=== PATIENT | female | born 1955 | race Caucasian/White ===

== ENCOUNTER 2018-10-03 18:55 | Inpatient (IN) ==
--- NOTE | 2018-10-03 19:41 | Diag Imaging Result Doc PS360 ---
CT HEAD W/O CONTRAST - 10/03/2018 INDICATION: STROKE LIKE SYMPTOMS COMPARISON: 12/06/2017 FINDINGS: There is a stable area of encephalomalacia at the right cerebellar hemisphere. No intracranial mass or hemorrhage. The skull is intact. The sinuses, mastoids, and middle ears are clear. IMPRESSION: No acute disease or change from prior. This exam was performed using automated exposure control, adjustment of mA or kV according to patient size, and/or use of iterative reconstruction technique Electronically signed by Lexa Goldberg 10/03/2018 7:38 PM
--- NOTE | 2018-10-03 19:42 | Diag Imaging Result Doc PS360 ---
CHEST-PORTABLE - 10/03/2018 INDICATION: weak COMPARISON: 12/06/2017 FINDINGS: The lungs are normally expanded and clear. Heart size and mediastinal contours are normal. No pneumothorax or pleural effusion. IMPRESSION: Negative exam. Electronically signed by Lexa Goldberg 10/03/2018 7:40 PM
[2018-10-03 20:00] LABS: BASO# 0.04 X1000 (0.0-0.2); BASO% 0.3 % (0.0-0.8); EOS# 0.28 X1000 (0.0-0.7); EOS% 2.2 % (0.0-10.0); HEMATOCRIT 42.2 % (37.0-47.0); HEMOGLOBIN 13.8 g/dL (12.0-16.0); IMM GRAN# 0.03 X1000 (0.0-0.04); IMM GRAN% 0.2 % (0.0-0.5); LYMPH# 3.23 X1000 (1.2-3.4); LYMPH% 24.9 % (20.5-51.1); MCHC 32.7 g/dL (33-37); MCV 94.8 FL (81-99); MONO# 0.71 X1000 (0.11-0.59); MONO% 5.5 % (1.7-9.3); NEUT# 8.66 X1000 (1.4-6.5); NEUT% 66.9 % (42.2-75.2); PLT 116 X1000 (130-400); RBC 4.45 XMIL (4.2-5.4); RDW 13.4 % (11.5-14.5); WBC 12.95 X1000 (4.8-10.8)
[2018-10-03 20:04] LABS: INR 0.85; PROTIME 12.3 Seconds (11.0-16.0)
[2018-10-03 20:05] LABS: PTT 39.8 Seconds (22.3-41.8)
[2018-10-03 21:15] LABS: ALB/GLOB RATIO 1.2; ALBUMIN 3.9 g/dL (3.5-5.0); CALCIUM 9.4 mg/dL (8.8-10.2); CREATININE 1.1 mg/dL (0.5-0.9); POTASSIUM 4.6 mmol/L (3.5-5.1); TOTAL BILIRUBIN 0.24 mg/dL (0.20-1.00); TOTAL PROTEIN 7.1 g/dL (6.3-8.3)
[2018-10-03] MEDS ORDERED: NS 1,000 ML IV SCH (23:56)
[2018-10-03] MEDS ORDERED: ZOFRAN IV PRN (23:56)
--- NOTE | 2018-10-04 00:24 | HISTORY AND PHYSICAL ---
PRIMARY PHYSICIAN: Dr. Vin Wagner's office. REASON FOR ADMISSION: Expressive aphasia of 1 day's duration. HISTORY OF PRESENT ILLNESS: Nohemy Maher is a 63-year-old woman who has a prior history of coronary artery disease, renal stones, type 2 diabetes, hypertension, hyperlipidemia, hypothyroidism secondary to partial parathyroidectomy and 2 prior CVAs, with a history of diabetic neuropathy. The patient is unable to give me a very clear cut history because of the limitations her presenting complaints have imposed on her. However, with the help of her friend she is able to tell me that in the early hours of this morning she was in [place] and had a hard time getting a few words out. Her friends there who she had gone to visit persuaded her to go to the hospital, she declined and drove herself to [place]. When getting to [place] she said she noticed that her speech was much worse. She states that I know what I want to say but the words do not come out right. She denied any swallowing difficulty, headache or visual problems. No focal weakness, numbness or tingling. No loss of consciousness. No antecedent palpitations or cardiorespiratory complaints. The patient has not fecal incontinence but she has a history of urge incontinence. No additional GI or complaints. No change in her recent home medications. REVIEW OF SYSTEMS: A twelve system review was done with positive findings per HPI. ALLERGIES: None. HOME MEDICATION: Effexor 37.5 mg at bedtime, aspirin 81 mg daily, metformin XR 500 mg b.i.d, empagliflozin 10 mg at bedtime, lisinopril 30 mg q.a.m., oxybutynin 10 mg daily, Zetia 10 mg daily, Brilinta 90 mg b.i.d., atorvastatin 40 mg daily, Synthroid 75 mcg ivonne, Metoprolol-XL 25 mg b.i.d. SURGICAL HISTORY: She has had prior thyroidectomy, tubal ligation, left heart catheterization, D and C, lithotripsy. SOCIAL HISTORY: The patient continues to smoke 1/2 pack a day. No alcohol or illicit drug use. She lives alone. FAMILY HISTORY: Notable for leukemia, Alzheimer disease, prior strokes. No heart disease or diabetes in first-degree relatives. LABORATORY DATA: WBC is 13,000, H and H is 13 and 42, platelets is 116,000, with a normal differential. BUN is 20, creatinine 1.1, glucose 211. Troponin is negative. PTT is normal. IMAGING: Head CT shows no acute change from prior. There is some stable area of encephalomalacia in the right cerebellar hemispheres. Chest film, no acute cardiopulmonary process. EKG not available for review. PHYSICAL EXAMINATION: VITAL SIGNS: Blood pressure 182/111, heart rate is 85, respirations 18, temperature is 98.7 degrees, O2 saturation is 97% on room air. GENERAL: She is middle-aged obese woman who is not in acute distress. She is alert and oriented x3 with normal mood and affect. HEAD: Head is normocephalic and atraumatic. EYES: ANDRY. EOMI. Anicteric. Not pale. Cranial nerves II-XII are grossly intact except the patient does have overt expressive aphasia. No gross focal sensory or motor deficits. ENT: Oropharynx examination is grossly normal. NECK: Short and thick. No JVD or carotid bruit. No thyromegaly. CHEST: Clear when auscultated with good air entry in both lung prabhakar. CARDIOVASCULAR: First and second heart sounds heard. No gallops, murmurs or rubs. Rhythm is regular. ABDOMEN: Protuberant, soft, nontender. No hepatomegaly. Bowel sounds are hyperactive. EXTREMITIES: The patient has good distal pulses which are regular and symmetrical. No edema, clubbing or cyanosis. NEUROLOGIC: See above.Skin: Intact. No breakdown, lesions or erythema. Musculoskeletal: Examination is grossly normal. ASSESSMENT: 1. Expressive aphasia secondary to probable left middle cerebral artery territory stroke. 2. Type 2 diabetes with nephropathy, uncontrolled. 3. Hypertensive heart disease. 4. Coronary artery disease. 5. Tobacco use. 6. Hyperlipidemia. PLAN: The patient will undergo extensive radiographic imaging and cardiovascular workup. The patient informs me that Dr. Vin Wagner just put her on an at least 30-day heart monitor and she was supposed to see him tomorrow. We will consult Dr. Vin Wagner to see her tomorrow, and maybe with a 30-day vent monitor the patient may have paroxysmal atrial fibrillation, which may explain her recurrent CVAs. For now start the patient on Plavix and aspirin. Deescalate aspirin. This is because the patient has had 2 strokes while on this antiplatelet regimen. I will optimize the patient's statin therapy. Check A1c lipid panel. Consult Dr. Dietrich for further input. Smoking cessation was reiterated. cc: Germaine Roberts MD MTDNisha
[2018-10-04] MEDS: LOVENOX SUBQ SCH (01:14)
[2018-10-04] MEDS: LIPITOR PO SCH ×2 (01:15→22:07)
--- NOTE | 2018-10-04 02:28 | PROVIDER DOCUMENTATION ---
This chart was entered by Jessica Reyes Scribe, acting as scribe for Dao Bishop MD. HPI-Neurological Disorder - General Chief Complaint: Stroke-Like Symptoms Stated Complaint: STROKE SX Time Seen by Provider: 10/03/18 19:07 Source: patient, family Allergies/Adverse Reactions: Patient Allergies Allergy/AdvReac Type Severity Reaction Status Date / Time No Known Allergies Allergy Verified 10/03/18 22:25 Home Medications: Home Medication List Medication Instructions Recorded Confirmed Last Taken Type Ezetimibe [Zetia] 10 mg PO DAILY 11/26/13 10/03/18 10/03/18 09:00 History Oxybutynin Chloride [Oxybutynin 10 mg PO DAILY 12/04/13 10/03/18 12/05/17 20:00 History Chloride ER] Metformin E.r. [Glucophage Xr] 500 mg PO BID CC 08/23/14 10/03/18 10/03/18 09:00 History Aspirin 81 mg PO DAILY 05/25/17 10/03/18 10/02/18 09:00 History ATORVAstatin [Lipitor] 40 mg PO DAILY #90 tablet 05/27/17 10/03/18 10/03/18 09:00 Rx Metoprolol Succinate E.r. [Toprol 25 mg PO BID #60 tab 05/27/17 10/03/18 10/03/18 09:00 Rx Xl] Ticagrelor [Brilinta] 90 mg PO BID #60 tab 05/27/17 10/03/18 10/03/18 09:00 Rx Venlafaxine [Effexor] 1 each PO QHS 12/06/17 10/03/18 Unknown History Levothyroxine [Synthroid] 75 microgm PO DAILY@0700 #120 tab 12/08/17 10/03/18 10/03/18 09:00 Rx Empagliflozin [Jardiance] 1 ea PO QAM 10/03/18 10/03/18 Unknown History Lisinopril 30 mg PO QAM 10/03/18 10/03/18 Unknown History - History of Present Illness-Neuro Nature of Presenting Problem: 63 yof c/o trouble communicating since 0900. pt friend at bedside sts pt came in from [place] this am. pt has hx of 3 strokes. pt on blood thinners. denies fever, cough, and trouble swallowing. pt has appt w/dr. hinkle at [facility] [place] tomorrow. Review of Systems - Adult - REVIEW OF SYSTEMS - ADULT Constitutional: reports: no symptoms reported. denies: fever Eyes: reports: no symptoms reported Ears, Nose, Mouth & Throat: reports: no symptoms reported Cardiovascular: reports: no symptoms reported Respiratory: reports: no symptoms reported. denies: cough Gastrointestinal: reports: no symptoms reported Genitourinary: reports: no symptoms reported Musculoskeletal: reports: no symptoms reported Integumentary: reports: no symptoms reported Neurological: reports: see HPI, other (trouble communicating). denies: seizure, slurred speech, syncope Psychiatric: reports: no symptoms reported Endocrine: reports: no symptoms reported Hematologic/Lymphatic: reports: no symptoms reported Allergic/Immunologic: reports: no symptoms reported All Other Systems: Reviewed and Negative Past History - Adult - PAST MEDICAL HISTORY-ADULT Review of Records: reports: Old Records Reviewed, Nursing Assessment Review, Medications Reviewed, Social history reviewed & non-contributory. Major Childhood Illnesses: reports: denies history Cardiovascular: reports: HTN, hyperlipidemia Respiratory: reports: denies history Gastrointestinal: reports: denies history Obstetrical/Gynecological: reports: denies history Genitourinary: reports: denies history Musculoskeletal: reports: denies history Neurological: reports: CVA (x3) Psychiatric: reports: anxiety Endocrine/Immune: reports: Diabetes Other Conditions: reports: denies history - PRIOR SURGERIES/PROCEDURES Surgical/Procedure History: reports: BTL, tonsillectomy - PRIOR HOSPITALIZATIONS Prior Hospitalizations: reports: none - IMMUNIZATION STATUS Childhood Immunizations: See Nurse Assessment Flu Vaccine: See Nurse Assessment - FAMILY HISTORY Family History: reviewed, not pertinent Physical Exam- Neurological - Physical Exam-Neuro Initial Vital Signs Reviewed: Yes General Appearance: appears well, alert, no apparent distress Eye Exam: bilateral eye: normal inspection, PERRL, EOMI HENMT: normocephalic/atraumatic, moist mucous membranes, normal ENT inspection Head Injury: no evidence of injury Neck: non-tender, full range of motion, supple, normal inspection Respiratory: chest non-tender, lungs clear, normal breath sounds Cardiovascular: normal peripheral pulses, regular rate, rhythm Abdominal Exam: normal bowel sounds, non tender, soft Peripheral Pulses: radial (R): 2+, radial (L): 2+ Extremity: normal range of motion, non-tender, 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 negative: abnormal eye position, abnormal gag reflex, abnormal pupil position Coordination/Gait: normal finger to nose. 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 negative: facial droop, focal weakness Integumentary: normal color, normal turgor, warm/dry Psych/Mental Status: normal mood/affect, normal thought content, normal thought process, oriented x 3 - Glascow Coma Scale Best Eye Response: (4) open spontaneously Best Verbal Response: (5) oriented Best Motor Response: (6) obeys commands Total Glascow Score: 15 Progress - PLAN OF CARE/RESULTS Progress/Plan/Lab Results: Vital Signs - 8 hr 10/03/18 19:00 10/03/18 19:33 10/03/18 20:08 Temperature 98.7 F Pulse Rate 85 75 73 Respiratory Rate 18 22 18 Blood Pressure 182/111 165/119 161/100 O2 Sat by Pulse Oximetry 97 96 96 10/03/18 20:09 10/03/18 20:10 10/03/18 20:20 Temperature Pulse Rate 73 74 72 Respiratory Rate 18 16 23 Blood Pressure O2 Sat by Pulse Oximetry 97 97 96 10/03/18 20:30 10/03/18 20:40 10/03/18 20:50 Temperature Pulse Rate 73 70 70 Respiratory Rate 20 17 20 Blood Pressure O2 Sat by Pulse Oximetry 95 97 97 10/03/18 21:00 10/03/18 21:02 10/03/18 21:10 Temperature Pulse Rate 73 69 73 Respiratory Rate 23 21 27 H Blood Pressure 158/104 O2 Sat by Pulse Oximetry 97 97 95 10/03/18 21:20 10/03/18 21:30 10/03/18 21:40 Temperature Pulse Rate 69 73 69 Respiratory Rate 21 25 H 14 Blood Pressure O2 Sat by Pulse Oximetry 97 98 98 10/03/18 21:50 10/03/18 22:00 10/03/18 22:02 Temperature Pulse Rate 71 76 75 Respiratory Rate 27 H 15 26 H Blood Pressure 170/94 O2 Sat by Pulse Oximetry 98 96 96 10/03/18 22:10 10/03/18 22:20 10/03/18 22:30 Temperature Pulse Rate 69 68 71 Respiratory Rate 20 16 16 Blood Pressure O2 Sat by Pulse Oximetry 96 97 96 10/03/18 22:40 Temperature Pulse Rate 74 Respiratory Rate 17 Blood Pressure O2 Sat by Pulse Oximetry 94 L Laboratory Results - last 24 hr 10/03/18 10/03/18 10/03/18 19:40 19:40 19:40 WBC 12.95 H RBC 4.45 Hgb 13.8 Hct 42.2 MCV 94.8 MCH 31.0 MCHC 32.7 L RDW Std Deviation 13.4 Plt Count 116 L MPV 12.0 H Immature Gran % (Auto) 0.2 Neut % (Auto) 66.9 Lymph % (Auto) 24.9 Lamar % (Auto) 5.5 Eos % (Auto) 2.2 Baso % (Auto) 0.3 Immature Gran # (Auto) 0.03 Neut # (Auto) 8.66 H Lymph # (Auto) 3.23 Lamar # (Auto) 0.71 H Eos # (Auto) 0.28 Baso # (Auto) 0.04 PT 12.3 INR 0.85 PTT (Actin FS) 39.8 Sodium 140 Potassium 4.6 Chloride 103 Carbon Dioxide 21 L Anion Gap 16 BUN 21 Creatinine 1.1 H Estimated GFR/1.73 m2 50 BUN/Creatinine Ratio 19 Glucose 211 H Calculated Osmolality 289 Calcium 9.4 Total Bilirubin 0.24 AST 21 ALT 13 Alkaline Phosphatase 102 Troponin T Total Protein 7.1 Albumin 3.9 Globulin 3.2 Albumin/Globulin Ratio 1.2 10/03/18 19:40 WBC RBC Hgb Hct MCV MCH MCHC RDW Std Deviation Plt Count MPV Immature Gran % (Auto) Neut % (Auto) Lymph % (Auto) Lamar % (Auto) Eos % (Auto) Baso % (Auto) Immature Gran # (Auto) Neut # (Auto) Lymph # (Auto) Lamar # (Auto) Eos # (Auto) Baso # (Auto) PT INR PTT (Actin FS) Sodium Potassium Chloride Carbon Dioxide Anion Gap BUN Creatinine Estimated GFR/1.73 m2 BUN/Creatinine Ratio Glucose Calculated Osmolality Calcium Total Bilirubin AST ALT Alkaline Phosphatase Troponin T < 0.010 Total Protein Albumin Globulin Albumin/Globulin Ratio Orders Category Date Time Status Admit - [facility] Routine AdmDCTranf 10/03/18 23:56 Active Activity - Strict Bedrest Q1D Care 10/03/18 23:56 Active Aspiration Precautions DIRECTED Care 10/03/18 23:56 Active Elevate Head of Bed DIRECTED Care 10/03/18 23:56 Active FSBS/Accucheck Result AC + HS Care 10/03/18 23:56 Active IV Insertion ORDERED Care 10/03/18 23:56 Active Intake and Output-Strict ORDERED Care 10/03/18 23:56 Active Misc. NRSG Communication Order DIRECTED Care 10/03/18 23:56 Active Neurological Check ORDERED Care 10/03/18 23:56 Active Nursing- MD Consult Request ROUTINE Care 10/03/18 23:56 Active Vital Signs Order Q 4-HR ASSESS Care 10/03/18 23:56 Active Z-Document. for Tele Applied ORDERED Care 10/03/18 23:56 Active Physician/Provider Consults Routine Cons 10/03/18 23:56 Ordered Physician/Provider Consults Routine Cons 10/03/18 23:56 Ordered Social Service Consult Routine Cons 10/03/18 23:56 Active Diabetic Diet Diet 10/03/18 23:56 Active NPO Diet 10/03/18 Lunch Active CHEST-PORTABLE [RAD] Stat Exams 10/03/18 19:[address] HEAD W/O CONTRAST [CT] Stat Exams 10/03/18 19:02 Completed A1C HGB W EST AVG GLUCOSE [CHEM] Routine Lab 10/04/18 06:00 Ordered BASIC METABOLIC PANEL [CHEM] Routine Lab 10/04/18 06:00 Ordered CBC WITH ELECTRONIC DIFF [HEME] Stat Lab 10/03/18 19:40 Completed CBC WITH NO DIFF [HEME] Routine Lab 10/04/18 06:00 Ordered COMPREHENSIVE METABOLIC PANEL [CHEM] Stat Lab 10/03/18 19:40 Completed LIPID PROFILE W/CALC LDL [LIPIDS] Routine Lab 10/04/18 06:00 Ordered LIPID PROFILE W/DIR LDL [LIPIDS] Routine Lab 10/04/18 06:00 Ordered PROTIME WITH INR [COAG] Stat Lab 10/03/18 19:40 Completed PTT [COAG] Stat Lab 10/03/18 19:40 Completed TROPONIN T Stat Lab 10/03/18 19:40 Completed UA NIMS W/REFLEX CULT [URINALYSIS] Stat Lab 10/03/18 19:42 Ordered 0.9% Sodium Chloride Inj [Ns] 1,000 ml Med 10/03/18 23:56 Active IV 125 mls/hr ATORVAstatin [Lipitor] Med 10/03/18 23:56 Active 80 mg PO QHS Acetaminophen [Tylenol] Med 10/03/18 23:56 Active 650 mg PO Q6H PRN PRN Aspirin Med 10/04/18 09:00 Active 81 mg PO DAILY Clopidogrel [Plavix] Med 10/04/18 09:00 Active 75 mg PO DAILY Enoxaparin [Lovenox] Med 10/03/18 23:56 Active 40 mg SUBQ Q24H Insulin Lispro [Humalog] Med 10/04/18 07:00 Active See Protocol SUBQ 0700,1100,1600,2100 LISINOpril [Prinivil] Med 10/04/18 09:00 Active 30 mg PO QAM Nicotine Patch [Nicoderm Patch] Med 10/04/18 09:00 Active 21 mg TD DAILY Ondansetron [Zofran] Med 10/03/18 23:56 Active 4 mg IV Q4H PRN PRN Telemetry [OM.EQ] Routine Oth 10/03/18 23:56 Active Physical Therapy Eval/Treatment [OM.PT] Routine Ther 10/03/18 23:56 Active Speech Evaluation [OM.SPT] Routine Ther 10/03/18 23:56 Active Transfer/Admit Order [TRANSFER] Routine Transfer 10/03/18 22:05 Completed Result Diagrams: 10/03/18 19:40 10/03/18 19:40 - EKG 1 Time of EKG reading by physician:: 19:59 EKG Read and Signed by:: Dao Bishop EKG Interpretation (*Must complete 3 of following elements*): Abnormal Rate: 71 Rhythm: NSR [place]: normal QRS: normal [place] Interval: normal ST Wave: normal Comments: anterior infarct, age undetermined - XRAY 1 XRAY Study: Chest (CHEST-PORTABLE - 10/03/2018 INDICATION: weak COMPARISON: 12/06/2017 FINDINGS: The lungs are normally expanded and clear. Heart size and mediastinal contours are normal. No pneumothorax or pleural effusion. IMPRESSION: Negative exam. Electronically signed by Lexa Goldberg 10/03/2018 7:40 PM) Impression: Normal - CT/MRI 1 CT Study: Head ( CT HEAD W/O CONTRAST - 10/03/2018 INDICATION: STROKE LIKE SYMPTOMS COMPARISON: 12/06/2017 FINDINGS: There is a stable area of encephalomalacia at the right cerebellar hemisphere. No intracranial mass or hemorrhage. The skull is intact. The sinuses, mastoids, and middle ears are clear. IMPRESSION: No acute disease or change from prior. This exam was performed using automated exposure control, adjustment of mA or kV according to patient size, and/or use of iterative reconstruction technique Electronically signed by Lexa Goldberg 10/03/2018 7:38 PM) Impression: Normal Comparison with other Films: no changes - CONSULTS/PCP/HOSPITALIST Notification #1 *Consult/PCP/Hospitalist*: Dr. Roberts Time Discussed: 21:38 Reason/Comments: Dr. Roberts will admit pt Consult Disposition: Admit Departure - Departure Date of Disposition Decision: 10/04/18 Time of Disposition Decision: 20:00 DIAGNOSIS: CVA (cerebral vascular accident) Disposition: ADMITTED INPATIENT 09 Certified Medical Emergency: Emergent Condition: Serious - Critical Care Note This patient required my direct & personal management of CC.: No Attestation - Physician/ BERTHA Attestation Patient care was provided by Advanced Practice Provider:: No The physician spent face to face time with patient:: Yes Advanced Practice Provider documentation review:: Supervising physician onsite and consulted in the evaluation and care of this patient. The physician did have a face to face encounter with the patient. This chart was documented by the indicated scribe, (Jessica Reyes Scribe) and accurately reflects the services I performed and decisions made by me, Dao Bishop MD, as attested by the provider's signature.
[2018-10-04] MEDS: HUMALOG SUBQ SCH ×4 (05:59→21:51)
[2018-10-04 07:04] LABS: HEMATOCRIT 40.7 % (37.0-47.0); MCH 31.3 PG (27-31); MCHC 31.9 g/dL (33-37); MCV 97.8 FL (81-99); RBC 4.16 XMIL (4.2-5.4); RDW 13.4 % (11.5-14.5); WBC 9.37 X1000 (4.8-10.8)
--- NOTE | 2018-10-04 07:30 | EKG Report ---
Test Performed on : 10/03/2018 7:59:28 PM Test Reason : ED. NO EKG ORDER FOR MUSE Blood Pressure : / mmHG Vent. Rate : 071 BPM Atrial Rate : 071 BPM P-R Int : 180 ms QRS Dur : 092 ms QT Int : 394 ms P-R-T Axes : 049 036 039 degrees QTc Int : 428 ms Normal sinus rhythm. Anterior infarct , age undetermined Abnormal ECG When compared with ECG of 06-DEC-2017 09:08, Nonspecific T wave abnormality no longer evident in Lateral leads Unconfirmed Result
[2018-10-04 07:34] LABS: AGAP 10; BUN 17 mg/dL (8-22); CHLORIDE 105 mmol/L (98-107); CHOLESTEROL 137 mg/dL (0-200); COSMO 285; CREATININE 0.9 mg/dL (0.5-0.9); ESTIMATED GFR > 60; GLUCOSE 147 mg/dL (70-104); HDL 42 mg/dL (45-65); LDL 49 mg/dL; POTASSIUM 4.6 mmol/L (3.5-5.1); SODIUM 141 mmol/L (136-145); TCO2 26 mmol/L (25-35); TRIGLYCERIDES 228 mg/dL (35-135); VLDL 46 mg/dL
[2018-10-04 07:35] LABS: HEMOGLOBIN A1C 8.5 % (4.8-6.0)
[2018-10-04] MEDS: PRINIVIL PO SCH (08:18)
[2018-10-04] MEDS: TYLENOL PO PRN (10:28)
[2018-10-04] MEDS: NICODERM PATCH TD SCH (10:29)
[2018-10-04] MEDS: PLAVIX PO SCH (10:29)
[2018-10-04] MEDS: ASPIRIN PO SCH (10:29)
--- NOTE | 2018-10-04 12:41 | CARDIOLOGY CONSULTATION ---
DATE: 10/04/2018 HISTORY OF PRESENT ILLNESS: Ms. Nohemy Maher is a 63-year-old lady who has history of having had a non-ST elevation myocardial infarction, takotsubo syndrome, hypertension, strokes in the past, two prior CVAs, who came to the emergency room and was admitted as she was not able to enunciate words appropriately. The patient was in [place] and had difficulty in speech and from [place] to [place], she noticed that her speech worsened. Did not have any focal weakness of either extremities. Did not lose consciousness. Subsequently she came here and was admitted. She has extensive history and workup as well. She in our office had worn a 30 day monitor which did not reveal any evidence of atrial fibrillation. Sinus rhythm was noted. In the past, she has had a CVA and MRI of the brain on 12/24/2017 revealed a small left parietal infarct with multiple old infarcts. Past medical history significant as below. REVIEW OF SYSTEMS: A 14 point review of systems was done. GI System: There is no history of nausea, vomiting, or diarrhea. There is no history of hematemesis or melena. Central nervous system: As above. Cardiovascular System: No chest pain. No palpitations. Genitourinary System: There is no dysuria or hematuria. PAST MEDICAL HISTORY: 1. Coronary artery disease, non ST elevation myocardial infarction on 05/25/2017. Left heart catheterization 05/27/2017 revealed LAD proximal 50%, circumflex was normal, diagonal a small lesion noted with terminal portion occluded. RCA minimal irregularities. Left ventricular ejection fraction 65%. 2. Echocardiogram 2018 was unremarkable. 3. Takotsubo syndrome in the past. 4. Hypertension. 5. Hyperlipidemia. 6. Diabetes mellitus. 7. CVA 02/01/2017 and in November 2017. The last MRI 12/06/2017 revealed small recent left parietal infarct with multiple old infarcts. 8. Hypoparathyroidism following procedure of partial parathyroidectomy. 9. Vascular dementia. 10. Depression. HOME MEDICATIONS: Effexor 37.5 mg, aspirin 81 mg a day, metformin 500 mg p.o. b.i.d., empagliflozin 10 mg at bedtime, lisinopril 30 mg, oxybutynin 10, Zetia 10, Brilinta 90 b.i.d., atorvastatin 90, Synthroid 75, metoprolol 25. SOCIAL HISTORY: The patient continues to smoke. PHYSICAL EXAMINATION: Vital Signs: When she came to the emergency room, blood pressure was 180/111. Blood pressure at the present time is 124/72. Cardiovascular System: Normal jugular venous pressure. First and second heart sounds were heard. There is no carotid bruit. There was no S3 gallop. Respiratory System: Normal air entry. There is no crepitations or rhonchi. Abdomen: Soft, nontender. There was no guarding or rigidity. Bowel sounds were heard. Central nervous system: Alert and oriented. Patient has speech difficulty. Was moving all 4 extremities. ASSESSMENT: Ms. Nohemy Maher is a 63-year-old lady who has had multiple strokes in the past who is admitted with speech difficulty and Neurology has been consulted. From a cardiac standpoint, she has had a history of non-Q-wave ST elevation myocardial infarction and also has hypertension, diabetes, pneumonia, depression. RECOMMENDATIONS: 1. She wore a 30 day loop monitor in our office which did not reveal any evidence of atrial fibrillation. 2. She has had multiple infarcts, cerebral, and we will plan for a transesophageal echocardiogram to make sure there is no cardiac etiology as well as we will rule out any patent foramen ovale. 3. As far as medications are concerned, she had non-Q-wave myocardial infarction on 05/25/2017. She has been on aspirin and Brilinta. Brilinta was given for a non-ST elevation PA and I will discontinue the Brilinta. The question comes whether or not she has had atrial fibrillation. She was not wearing a monitor when this episode happened and 30-day loop monitor was unremarkable. She would probably benefit from implantable loop device to make sure that there is no atrial fibrillation to account for her symptoms. 4. Hypertension. She was hypertensive when she came in. Currently blood pressure is under control on the current medications. I have not made any changes. 5. Diabetes. Continue with the current medications. 6. She has hypothyroid. Continue with the current medications. Thank you for the consult. cc: MD Latasha Lake MD
--- NOTE | 2018-10-04 14:34 | CONSULTATION ---
DATE OF CONSULTATION: 10/04/2018 HISTORY OF PRESENT ILLNESS: Ms. Maher is 63 years old, and there is question of another stroke- like event. History from the patient is that there was sudden onset of inability to make herself understood with speech yesterday. She did not have trouble understanding what was said to her. She recognized her speech difficulty. She believes her speech was not slurred, but she could not make her words come out right. There was no headache, vision disturbance, altered consciousness, altered awareness. She did not notice any new focal motor deficit. She believes that her words are coming together a little bit better today, but there has not been a major change since onset yesterday. Workup includes initial noncontrast CT of the head showing old ischemic changes, most prominent in the right cerebellum, but nothing new and no bleeding. Lab shows blood sugars 100-200. Triglycerides elevated at 237. Total cholesterol was 138. She has been afebrile since admission. Heart rate has ranged 60s to 90s. Initial systolic blood pressure was 180s and systolic blood pressures have been 120s-140s since she settled in. There is history of prior presumed ischemic neurologic events with brain imaging sometimes correlating and sometimes not correlating well with clinical features. Prior episodes have been associated with speech difficulty similar to current episode, and there have also been some sensory and possibly visual changes, but never clear focal motor deficit, with prior events. Past history is remarkable for probable stroke as above, ischemic heart disease, hypertension, dyslipidemia, diabetes mellitus type 2. She smokes cigarettes. She has taken thyroid replacement since surgery. CURRENT MEDICINES: Include aspirin, atorvastatin, Jardiance, Zetia, Synthroid, lisinopril metformin, metoprolol, Brilinta, Effexor, oxybutynin. PHYSICAL EXAMINATION: On exam, Ms. Maher is awake, alert, bright, cheerful, attentive. She recognized me from prior visit (I saw her in 2014 and in 2018). Speech is not dysarthric. She had trouble repeating pronouns. She named objects and parts of objects. She named the President. She followed simple commands consistently. She had slight difficulty following commands requiring right/left distinction and digit distinction. She followed written and spoken commands equally well. I did not test her handwriting. Visual prabhakar are full tested grossly by confrontational finger counting. Extraocular movements are full. Facial motility is good bilaterally. Gag is intact. Tongue is midline. She can hear. She has good power in the left limbs. I can overcome the right arm at the deltoid grading 4+/5. Tone is slightly increased in the right arm. She did rapid alternating movements well with the hands. She did well on [id number] testing bilaterally. Sensation is intact to pinprick testing over the hands. She has a stocking pattern of sensory loss which appears to be equal on the left and right. Plantar response is silent bilaterally. Reflexes absent at the ankle bilaterally. Proprioception is good at the great toe MTP joint bilaterally. I did not test her gait. IMPRESSION: 1. Predominantly expressive dysphasia. With reported sudden onset in this patient with previous ischemic events and risk factors, this seems most likely acute ischemic dominant left hemisphere infarction. She did not have headache with this episode. Migraine would not be impossible, but seems less likely. Her creatinine is down to 0.9 today. I will order brain magnetic resonance imaging with contrast and further plans will depend on that report. 2. Cardiology workup is in progress. Thanks for asking Neurology to see Ms Maher. cc: MD Latasha Martinez III, MD MTDD
--- NOTE | 2018-10-04 15:53 | Diag Imaging Result Doc PS360 ---
EXAM: MRI BRAIN W/WO CONTRAST INDICATION: new dysphasia COMPARISON: 12/06/2017 FINDINGS: There is patchy restricted diffusion involving the right frontal lobe mainly involving the operculum including Broca's area consistent with acute infarct. There are several old cerebellar infarcts bilaterally. There is mild subcortical white matter microangiopathy that is stable. There is no discrete intracranial mass, mass effect, or intracranial hemorrhage. No abnormal intracranial enhancement is appreciated. The surrounding soft tissues and bony structures are essentially unremarkable. IMPRESSION: 1.Patchy restricted diffusion indicating acute infarcts involving the left frontal lobe including Broca's area. 2.Mild chronic white matter change as well as chronic infarcts involving the cerebellar hemispheres bilaterally. Electronically signed by Edmond Reyes 10/04/2018 3:50 PM
--- NOTE | 2018-10-04 18:39 | PROGRESS NOTE ---
DATE: 10/04/2018 SUBJECTIVE: The patient is resting comfortably. She does have expressive aphasia. OBJECTIVE: Vital Signs: Temperature 98.4 degrees, blood pressure 142/72, heart rate 70, respirations 18, O2 saturation is 97% on room air. General: This is a chronically ill-appearing elderly female sitting up in a chair, in no acute distress. Heart: S1, S2 normal. Regular rate and rhythm. Lungs: Clear to auscultation bilaterally. No wheezing. No rales. No rhonchi. Abdomen: Positive bowel sounds. Soft, nontender, nondistended. Extremities: No edema. No cyanosis. Neurologic: The patient is alert and oriented x4. She does have expressive aphasia. LABS: Sodium 141, potassium 4.6. Hemoglobin A1c 8.5. LDL 78, cholesterol 138. ASSESSMENT AND PLAN: 1. Acute cerebrovascular accident. The MRI shows acute infarcts involving the left frontal lobe including the Broca's area. The patient is scheduled to undergo a CALI tomorrow. Continue on Lipitor and Plavix. 2. Hypothyroidism. Continue on Synthroid. 3. Diabetes mellitus type 2. Continue with sliding scale insulin. 4. Situational depression. Continue on Effexor. 5. Tobacco dependence. The patient has been counseled about smoking cessation. 6. Deep vein thrombosis prophylaxis. Continue on Lovenox. 7. Disposition. Speech therapy as well as physical therapy have been consulted. cc: Latasha Iniguez MD
[2018-10-05] MEDS: LOVENOX SUBQ SCH ×2 (00:02→23:55)
[2018-10-05] MEDS: HUMALOG SUBQ SCH ×4 (06:04→20:56)
[2018-10-05] MEDS: SYNTHROID PO SCH (06:04)
[2018-10-05 07:35] LABS: HEMATOCRIT 41.6 % (37.0-47.0); HEMOGLOBIN 13.3 g/dL (12.0-16.0); MPV 12.2 FL (7.4-10.4); RBC 4.29 XMIL (4.2-5.4); RDW 13.4 % (11.5-14.5); WBC 7.69 X1000 (4.8-10.8)
[2018-10-05 07:39] LABS: AGAP 10; BUN 16 mg/dL (8-22); CALCIUM 8.9 mg/dL (8.8-10.2); CHLORIDE 107 mmol/L (98-107); COSMO 288; CREATININE 0.9 mg/dL (0.5-0.9); ESTIMATED GFR > 60; GLUCOSE 158 mg/dL (70-104); POTASSIUM 4.4 mmol/L (3.5-5.1); SODIUM 142 mmol/L (136-145); TCO2 25 mmol/L (25-35)
[2018-10-05] MEDS ORDERED: XYLOCAINE 2% VISCOUS ONE (08:17)
[2018-10-05] MEDS ORDERED: SODIUM CHLORIDE 0.9% 10 ML ONE (08:17)
[2018-10-05] MEDS ORDERED: CLAVE TWINSITE 32 IN 11959 ONE (08:43)
[2018-10-05] MEDS ORDERED: ANESTHESIA PB SET 88 IN 5742 ONE (08:43)
[2018-10-05] MEDS ORDERED: NS 1,000 ML ONE (08:44)
[2018-10-05] MEDS ORDERED: XYLOCAINE-MPF 1% 5 ML ONE (08:48)
[2018-10-05] MEDS ORDERED: DIPRIVAN 1% ONE (08:48)
--- NOTE | 2018-10-05 09:24 | ECHO REPORT ---
ORDER DATE: 10/05/2018 PROCEDURE: Transesophageal echocardiogram to rule out intracardiac source of embolism. DESCRIPTION OF PROCEDURE: The patient was brought to the cardiac catheterization laboratory after informed consent was obtained. Oropharynx was anesthetized using Cetacaine spray. Anesthesia was present. Please see detailed records; propofol was given. A transesophageal probe was easily passed into the esophagus and ultrasound pictures were obtained. FINDINGS: 1. Normal left ventricular cavity size, estimated ejection fraction of 60%. 2. Left atrium was normal. Left atrial appendage was normal. Right atrium was normal. 3. Aortic valve leaflets are trileaflet. 4. Mitral valve was normal. 5. Pulmonic valve was normal. 6. Aortic valve leaflets are trileaflet. 7. Pulmonic valve was normal. 8. Doppler studies revealed mild mitral regurgitation. There is no aortic stenosis or regurgitation. 9. Trace tricuspid regurgitation. 10. Saline contrast study was negative for patent foramen ovale. 11. Ascending aorta was normal. Descending aorta had layered plaque. 12. There is no obvious intracardiac mass or thrombus seen. CONCLUSIONS: 1. Normal left ventricular cavity size, estimated ejection fraction of 60%. 2. There is no obvious intracardiac mass or thrombus seen. 3. Saline contrast study was negative for patent foramen ovale. cc: MD Lila [place] PA Katherine Takundwa, MD
[2018-10-05] MEDS: NICODERM PATCH TD SCH (10:01)
[2018-10-05] MEDS: ASPIRIN PO SCH (10:55)
[2018-10-05] MEDS: PRINIVIL PO SCH (10:55)
[2018-10-05] MEDS: PLAVIX PO SCH (10:55)
--- NOTE | 2018-10-05 12:16 | PROGRESS NOTE ---
DATE: 10/05/2018 Ms. Maher reports improvement in her speech and language function. She does not have headache. She has not noticed any new problems. MRI shows evidence of small acute ischemic change in the left hemisphere. On exam now, she is awake, alert, attentive, and appropriate. Speech is not dysarthric. Language function is improved on bedside testing compared to yesterday. Still, she had a little bit of trouble with complicated commands. She did much better today with commands requiring digit distinction and right/left distinction. She did better naming and repeating today. We reviewed her risk factors for cerebrovascular ischemic problems. I encouraged her to be aggressive with management and specifically strongly encouraged her to quit smoking cigarettes. Thanks for asking Neurology to see Ms. Maher. cc: MD Latasha Martinez III, MD MTDD
[2018-10-05] MEDS: TYLENOL PO PRN ×2 (14:57→20:59)
--- NOTE | 2018-10-05 16:07 | PROGRESS NOTE ---
DATE: 10/05/2018 SUBJECTIVE: The patient is resting comfortably in bed. No acute events noted overnight. Her aphasia is improving. OBJECTIVE: Vital Signs: Temperature 98.6 degrees, blood pressure 144/85, heart rate 73, respirations 18, O2 saturation is 98% on room air. General: This is an elderly female sitting up in bed, in no acute distress. Heart: S1, S2 normal. Regular rate and rhythm. Lungs: Equal air entry bilaterally. No crackles. No rales. Abdomen: Positive bowel sounds. Soft, nontender, nondistended. Extremities: No edema. No cyanosis. Neurologic: The patient is alert and oriented x4. The patient does have some mild aphasia. LABS: Reviewed. CALI revealed a normal ejection fraction. No evidence of intracardiac mass or thrombus seen. Negative for patent foramen ovale. ASSESSMENT AND PLAN: 1. Acute cerebrovascular accident. Will continue on Lipitor and Plavix. The patient will need speech therapy as outpatient. We will arrange for this with [employer]. Continue with physical therapy. 2. Hypothyroidism. Continue on Synthroid. 3. Diabetes mellitus type 2. Continue on sliding scale insulin. 4. Situational depression. Continue on Effexor. 5. Tobacco dependence. The patient has been counseled about smoking cessation. 6. Thrombocytopenia. Discontinue lovenox. Monitor count closely. 7. Disposition. We will continue with physical therapy. Hopefully, the patient can be discharged in the next 24 hours. cc: Latasha Iniguez MD MTDD
[2018-10-05] MEDS: LIPITOR PO SCH (20:55)
[2018-10-06] MEDS: SYNTHROID PO SCH (06:02)
[2018-10-06] MEDS: HUMALOG SUBQ SCH ×4 (06:02→22:16)
[2018-10-06 07:12] LABS: HEMATOCRIT 42.5 % (37.0-47.0); HEMOGLOBIN 13.7 g/dL (12.0-16.0); MCH 30.4 PG (27-31); MCHC 32.2 g/dL (33-37); MCV 94.4 FL (81-99); MPV 11.6 FL (7.4-10.4); RBC 4.5 XMIL (4.2-5.4); RDW 13.4 % (11.5-14.5); WBC 8.84 X1000 (4.8-10.8)
[2018-10-06] MEDS: PRINIVIL PO SCH (09:48)
[2018-10-06] MEDS: PLAVIX PO SCH (09:48)
[2018-10-06] MEDS: ASPIRIN PO SCH (09:48)
[2018-10-06] MEDS: NICODERM PATCH TD SCH (09:48)
--- NOTE | 2018-10-06 13:58 | PROGRESS NOTE ---
DATE: 10/06/2018 Ms. Maher reports continued improvement in her language function. She has not noticed any new problems. She does not have headache. On exam, she is awake and alert. Speech is not significantly dysarthric. She did well on bedside tests of naming objects and parts of objects, repeating short phrases and nonsense pronouns, following simple and complicated commands. IMPRESSION: Predominantly expressive dysphasia is much improved. I expect she will continue to recover, possibly back to baseline. We reviewed her risk factors for cerebrovascular ischemic problems. Negative echocardiogram is noted. I strongly encouraged her to quit smoking cigarettes. No other suggestions now. Thanks for asking Neurology to see Ms. Maher. cc: MD Latasha Martinez III, MD
--- NOTE | 2018-10-06 18:24 | PROGRESS NOTE ---
DATE: 10/06/2018 SUBJECTIVE: The patient is resting comfortably in bed. No acute events noted overnight. OBJECTIVE: Vital Signs: Temperature 97.9, blood pressure 176/90, heart rate 112, respirations 17, O2 saturation 98% on room air. General: This is a morbidly obese female sitting in bed in no acute distress. Heart: S1, S2 normal. Tachycardiac. Lungs: Equal air entry bilaterally. No crackles. No rales. Abdomen: Positive bowel sounds. Soft, nontender, nondistended. Extremities: No edema, no cyanosis. Neurologic: The patient is alert and oriented x4. The patient's aphasia has improved. LABORATORY DATA: Platelets 107,000, hemoglobin 13, hematocrit 42, white blood cell count 8.8. ASSESSMENT AND PLAN: 1. Acute cerebrovascular accident. The patient reports that this is her third stroke, and she states that she has been on antiplatelet therapy for it. We will continue on Lipitor and an aspirin, may need to consider starting warfarin given the patient's multiple strokes. 2. Diabetes mellitus type 2. Continue on the current insulin regimen. 3. Chronic thrombocytopenia. Aware. 4. Hypothyroidism. Continue on Synthroid. 5. Hypertension. Continue on lisinopril. 6. Tobacco dependence. The patient has been counseled about smoking cessation. DISPOSITION: The patient will require speech therapy as outpatient. I will ask social worker health services to arrange this for the patient. cc: Latasha Iniguez MD
[2018-10-06] MEDS ORDERED: COUMADIN PO SCH (21:00)
[2018-10-06] MEDS: LIPITOR PO SCH (22:16)
[2018-10-07] MEDS: SYNTHROID PO SCH (06:34)
[2018-10-07] MEDS: HUMALOG SUBQ SCH ×2 (06:34→10:49)
[2018-10-07 07:16] LABS: HEMATOCRIT 42.2 % (37.0-47.0); HEMOGLOBIN 13.6 g/dL (12.0-16.0); MCH 30.9 PG (27-31); MCHC 32.2 g/dL (33-37); MCV 95.9 FL (81-99); MPV 11.6 FL (7.4-10.4); RBC 4.4 XMIL (4.2-5.4); RDW 13.6 % (11.5-14.5); WBC 9.14 X1000 (4.8-10.8)
[2018-10-07 07:44] LABS: AGAP 13; BUN 12 mg/dL (8-22); CALCIUM 8.6 mg/dL (8.8-10.2); CHLORIDE 105 mmol/L (98-107); COSMO 286; CREATININE 0.9 mg/dL (0.5-0.9); ESTIMATED GFR > 60; GLUCOSE 182 mg/dL (70-104); POTASSIUM 3.8 mmol/L (3.5-5.1); SODIUM 141 mmol/L (136-145); TCO2 23 mmol/L (25-35)
[2018-10-07] MEDS ORDERED: PLAVIX PO SCH (09:00)
[2018-10-07] MEDS: NICODERM PATCH TD SCH (09:34)
[2018-10-07] MEDS: ASPIRIN PO SCH (09:34)
[2018-10-07] MEDS: PRINIVIL PO SCH (09:34)
[2018-10-07 11:25] VITALS: BP 149/87
--- NOTE | 2018-10-07 12:11 | PROGRESS NOTE ---
DATE: 10/07/2018 Ms. Maher is awake, alert, attentive, cheerful. Speech is not dysarthric. Language function is stable on brief bedside testing. We reviewed her risk factors for cerebrovascular disease again and she reports she understands need to quit smoking cigarettes. No new suggestions. Thanks for asking Neurology to see Ms. Maher. I will be glad to see her again if needed. cc: MD Latasha Martinez III, MD MTDD
--- NOTE | 2018-10-14 12:03 | Carotid Study ---
DATE: 10/06/2018 PROCEDURE: Carotid duplex imaging. REFERRING PHYSICIAN: Dr. Iniguez INTERPRETING PHYSICIAN: Dr. Castillo TECH: Brian Fagan [facility] INDICATIONS: CVA/stroke. OBSERVED DATA RIGHT LEFT Brachial Blood Pressure Carotid Pulse Bruits: Carotid/Sub DIAGRAM OF ULTRASOUND IMAGING R L RIGHT INT EXT INT EXT LEFT Lauro (cm/s) Lauro (cm/s) Subclavian 78/0 Subclavian 105/0 CCA Proximal 94/13 CCA Proximal 85/15 CCA Distal 64/12 CCA Distal 60/11 Bulb 58/10 Bulb 67/14 ICA Proximal 51/10 ICA Proximal 58/13 ICA Mid 63/15 ICA Mid 57/16 ICA Distal 50/13 ICA Distal 48/12 ECA 99/13 ECA 114/15 Vertebral 39/8 Vertebral 35/7 ICA/CCA Ratio 0.67 ICA/CCA Ratio 0.67 % Stenosis 0 to 39 % Stenosis 0 to 39 PHYSICIAN INTERPRETATION: Mild atherosclerotic disease of the distal common and internal carotid arteries bilaterally without evidence of a hemodynamically significant lesion in either carotid system. cc: MD Latasha Silva MD
--- NOTE | 2018-10-17 19:56 | DISCHARGE SUMMARY ---
ADMISSION DATE: 10/03/2018 DISCHARGE DATE: 10/07/2018 FINAL DISCHARGE DIAGNOSES: 1. Acute cerebrovascular accident with aphasia. 2. Diabetes mellitus type 2. 3. Chronic thrombocytopenia. 4. Morbid obesity. 5. Hypothyroidism. 6. Tobacco dependence. 7. Hypertension. CONSULTATIONS: 1. Cardiology consultation with Dr. Hanson. 2. Neurology consultation with Dr. Deitrich. IMAGIN. Head CT performed on 10/03/2018 which revealed no acute change or disease. 2. A brain MRI performed on 10/04/2018, which revealed a patchy restricted diffusion indicating an acute infarct involving the left frontal lobe including Broca's area. 3. Carotid Doppler study which revealed mild atherosclerotic disease of the distal common and internal carotid arteries bilaterally without evidence of a hemodynamically-significant lesion in either carotid system. HOSPITAL COURSE: Ms. Maher is a 63-year-old female with a history of multiple medical problems who presented to the ER with stroke-like symptoms. On admission, a head CT was done that was negative. The patient was admitted to the hospitalist service and scheduled for a stroke workup the following day. Brain MRI was performed on October 04 that revealed acute infarcts involving the left frontal lobe including Broca's area. Cardiology and Neurology were consulted. The patient was taken for a CALI on 10/05/2018 that was noted to be negative for thrombus, mass or patent foramen ovale. The patient was seen by speech therapy and physical therapy. The patient was also encouraged to quit smoking. The patient was started on Plavix and Lipitor. The patient continued to improve clinically and was ultimately cleared for discharge home. DISCHARGE MEDICATIONS: 1. Aspirin 81 mg p.o. daily. 2. Lipitor 80 mg p.o. at bedtime. 3. Plavix 75 mg oral daily. 4. Jardiance 1 tablet oral every morning. 5. Synthroid 75 mcg oral daily. 6. Lisinopril 30 mg oral every morning. 7. Metformin 500 mg oral twice a day. 8. Toprol-XL 25 mg oral twice a day. 9. Oxybutynin 10 mg oral daily. 10. Effexor 1 tablet oral at bedtime. DISCHARGE DIET: 1800 ADA diet, low-sodium diet. ACTIVITY: As tolerated. FOLLOWUP INSTRUCTIONS: The patient has been advised to follow up with her primary care physician in 1 week. cc: Latasha Iniguez MD
== END 2018-10-07 15:33 | disposition home or self-care (01) | DRG 66 ==
LOC: ED 18:55 → EDIPHOLD 22:47 → SUATTDRO 22:47 → 3N 10-04 02:01
PROVIDERS: ADMIT Internal Medicine; ATTEND Internal Medicine
CPT/HCPCS: 70450; 70553; 71010; 71045; 80048; 80053; 80061; 82948; 83036; 83721; 84484; 85025; 85027; 85610; 85730; 92507; 93005; 93312; 93880; 96360; 97162; 97530; 99285; A9270; A9579; J1650; J1815; J7030; XXXXX